=== PATIENT | female | born 1995 | race Caucasian/White ===

== ENCOUNTER 2018-10-26 19:47 | Emergency (ER) | payer OTHER ==
[~2018-10-26] VITALS: Ht 160 cm; Wt 59.9 kg
[2018-10-26] MEDS ORDERED: LEXAPRO 10 MG T10 M1 PO (20:03)
[2018-10-26] MEDS ORDERED: HALDOL 0.5 MG0.5 MG PO (20:04)
[2018-10-26] MEDS ORDERED: TRAZODONE 150150 M1 PO (20:04)
[2018-10-26] MEDS ORDERED: VISTARIL 25 MG25 M1 PO (20:04)
[2018-10-26] MEDS ORDERED: NEURONTIN 300300 M1 PO (20:04)
[2018-10-26] MEDS ORDERED: XANAX 1 MG TABLE1 MG PO (21:07)
[2018-10-26 21:50] VITALS: BP 134/82
== END 2018-10-26 21:50 | disposition home or self-care (01) ==
LOC: M.ERS 19:47
DX: M54.2 Cervicalgia (principal); T43.4X5A Adverse effect of butyrophenone and thiothixene neuroleptics, initial encounter; R68.84 Jaw pain; Z88.8 Allergy status to other drugs, medicaments and biological substances; Y92.89 Other specified places as the place of occurrence of the external cause